=== PATIENT | male | born 1985 | race Caucasian/White ===

== ENCOUNTER 2019-06-08 08:05 | Emergency (ER) | payer SELFPAY ==
[~2019-06-08] VITALS: Ht 185.4 cm; Wt 64.0 kg
[2019-06-08] MEDS ORDERED: HYDROCODONE/ACETAMINOPHEN 5/325MG TABLET PO ONE (09:15)
[2019-06-08] MEDS ORDERED: ONDANSETRON 4MG ODT PO ONE (09:15)
[2019-06-08 10:57] VITALS: BP 117/81
== END 2019-06-08 11:29 | disposition home or self-care (01) ==
LOC: ER 08:05
DX: S92.001A Unspecified fracture of right calcaneus, initial encounter for closed fracture (principal); F17.200 Nicotine dependence, unspecified, uncomplicated; Z88.0 Allergy status to penicillin; V89.2XXA Person injured in unspecified motor-vehicle accident, traffic, initial encounter; Y93.89 Activity, other specified; Y92.89 Other specified places as the place of occurrence of the external cause; Y99.8 Other external cause status
CPT/HCPCS: 29515; 73590; 73630; 73650; 93971; 99284; Q0162